=== PATIENT | female | born 1970 | race Caucasian/White ===

== ENCOUNTER 2018-03-24 21:50 | Emergency (ER) | payer BC, OTHER ==
--- NOTE | 2018-03-24 22:10 | Emergency Department Record ---
History of Present Illness - General Chief Complaint: Laceration(s) Stated Complaint: LT HAND PINKIE LAC Time Seen by Provider: 03/24/18 22:02 Source: Patient Mode of Arrival: Ambulatory Limitations: No limitations - History of Present Illness Initial Commments: 47 yo female presents to ED for evaluation following a crush injury to the the left little digit just prior to arrival. Patient reports that she was assisting with moving a cough when the digit became caught beneath the cough a wall. Patient reports bleeding and pain following injury, denies numbness/ tingling or weakness symptoms. Onset/Timin -: Minutes(s) Extremity Location: Left: Hand Place: Home Context: Accidental Associated Symptoms: None Treatments Prior to Arrival: Bandage - [place] Coma Scale Eye Response: (4) Open spontaneously Motor Response: (6) Obeys commands Verbal Response: (5) Oriented Diana Total: 15 - Related Data Patient Tetanus UTD (within 5 yrs): No Previous Rx's Medication Instructions Recorded Cephalexin [Keflex] 500 mg PO QID #39 cap 03/24/18 Allergies Allergy/AdvReac Type Severity Reaction Status Date / Time No Known Drug Allergies Allergy Verified 03/24/18 21:53 Travel Screening - Travel/Exposure Within Last 30 Days Have you traveled within the last 30 days?: No - Travel Symptoms Symptom Screening: None Review of Systems Constitutional: Denies: Chills, Fever, Malaise, Night sweats Eyes: Denies: Eye discharge, Eye pain ENT: Denies: Ear pain, Epistaxis Respiratory: Denies: Cough, Dyspnea Cardiovascular: Denies: Chest pain, Dyspnea on exertion Endocrine: Denies: Fatigue, Heat or cold intolerance Gastrointestinal: Denies: Abdominal pain, Nausea, Vomiting Genitourinary: Denies: Incontinence, Retention Musculoskeletal: Denies: Arthralgia, Back pain Skin: Reports: Other (Little finger laceration.). Denies: Bruising, Change in color Neurological: Denies: Abnormal gait, Confusion, Headache, Seizure Psychiatric: Denies: Anxiety Hematological/Lymphatic: Denies: Anemia, Blood Clots Past Medical History - SOCIAL HISTORY Smoking Status: Former smoker - RESPIRATORY Hx Respiratory Disorders: No - CARDIOVASCULAR Hx Cardio Disorders: No - NEURO Hx Neuro Disorders: No - GI Hx GI Disorders: No - Hx Genitourinary Disorders: No - ENDOCRINE Hx Endocrine Disorders: No - MUSCULOSKELETAL Hx Musculoskeletal Disorders: No - PSYCH Hx Psych Problems: No - HEMATOLOGY/ONCOLOGY Hx Hematology/Oncology Disorders: No Family Medical History Any Significant Family History?: Yes Hx Cancer: Father Physical Exam - General General Appearance: Alert, Oriented x3, Cooperative, Moderate distress Limitations: No limitations - Head Head exam: Atraumatic, Normocephalic, Normal inspection Head exam detail: negative: Abrasion, Contusion, Graham's sign, General tenderness, Hematoma - Eye Eye exam: Normal appearance. negative: Conjunctival injection, Periorbital swelling, Periorbital tenderness, Scleral icterus - ENT Ear exam: negative: Auricular hematoma, Auricular trauma Nasal Exam: negative: Active bleeding, Discharge, Dried blood, Foreign body Mouth exam: negative: Drooling, Laceration, Muffled voice, Tongue elevation - Neck Neck exam: Normal inspection. negative: Meningismus, Tenderness - Respiratory Respiratory exam: Normal lung sounds bilaterally. negative: Rales, Respiratory distress, Rhonchi, Stridor - Cardiovascular Cardiovascular Exam: Regular rate, Normal rhythm, Normal heart sounds - GI/Abdominal GI/Abdominal exam: Soft. negative: Rebound, Rigid, Tenderness - Rectal Rectal exam: Deferred - exam: Deferred - Extremities Extremities exam: Tenderness, Other (circumferential laceration of to the left little digit just proximal to the nailfold.). negative: Calf tenderness, Pedal edema - Back Back exam: Reports: Normal inspection. Denies: CVA tenderness (R), CVA tenderness (L) - Neurological Neurological exam: Alert, Normal gait, Oriented X3 - Psychiatric Psychiatric exam: Normal affect, Normal mood - Skin Skin exam: Normal color. negative: Abrasion Type of lesion: negative: abrasion Course Vital Signs 03/24/18 21:54 Temperature 98.3 F Pulse Rate 78 Respiratory 16 Rate Blood Pressure 145/77 Pulse Ox 97 - Reevaluation(s) Reevaluation #1: 03/24/18 22:08 Left little digit: Mildly displaced distal tuft fracture 2.5 cm laceration to the distal left little digit just proximal to the nail-fold , bleeding controlled. Wound was cleaned and prepped in sterile fashion, no residual FB identified on examination. Flexion/extension intact with isolation of the DIP. Wound was anesthetized with 1.5 mL of 0.25% Sensorcaine with good anesthesia, and the laceration was repaired with 4-0 Prolene (#7) sutures in interrupted fashion. Patient tolerated the procedure well without complications. Patient was started on Keflex, Tetanus updated prior to discharge. Case was discussed with Dr. Zuluaga, will see the patient in the office in 1-2 days as directed. Disposition Disposition: Discharge Clinical Impression: Open fracture of tuft of distal phalanx of finger Finger laceration Qualifiers: Encounter type: initial encounter Finger: little finger Damage to nail status: without damage Foreign body presence: without foreign body Laterality: left Qualified Code(s): S61.217A - Laceration without foreign body of left little finger without damage to nail, initial encounter Disposition: Home, Self-Care Condition: (2) Stable Instructions: Laceration (ED) Additional Instructions: Return to ED if your symptoms worsen or if you have any concerns. Keflex as directed. Follow-up with Dr. Zuluaga in 1-2 days as directed, call for appointment. Prescriptions: Cephalexin [Keflex] 500 mg PO QID #39 cap Referrals: KALA ZULUAGA M.D. [MEDICAL DOCTOR] - Forms: Patient Portal Access Time of Disposition: 22:46 Quality - Quality Measures Quality Measures: N/A - Blood Pressure Screening Does Patient Have Any of the Following: No Blood Pressure Classification: Hypertensive Reading Systolic Measurement: 145 Diastolic Measurement: 77 Screening for High Blood Pressure: < First Hypertensive BP, F/U Documented > [ [id number]] First Hypertensive Follow-up Interventions: Referral to alternative/primary care provider.
[2018-03-24] MEDS: CEPHALEXIN 500 MG CAPSULE PO STA (22:52)
[2018-03-24] MEDS: Diph,Pert(Acell),Tet Vac 0.5 ML SYR IM ONE (22:52)
--- NOTE | 2018-03-25 15:11 | RADIOLOGY REPORT ---
EXAM: LEFT FIFTH DIGIT HISTORY: INJURY. TECHNIQUE: Three views of the left fifth digit were obtained. Comparison: None. FINDINGS: Mild displaced fracture of the distal tuft. Associated soft tissue changes. IMPRESSION: MILDLY DISPLACED DISTAL TUFT FRACTURE. JOB NUMBER: [id number] MTDD
== END 2018-03-24 23:08 | disposition home or self-care (01) ==
LOC: ER 21:50
DX: S61.217A Laceration without foreign body of left little finger without damage to nail, initial encounter (principal); S62.637A Displaced fracture of distal phalanx of left little finger, initial encounter for closed fracture; W23.0XXA Caught, crushed, jammed, or pinched between moving objects, initial encounter; Y92.009 Unspecified place in unspecified non-institutional (private) residence as the place of occurrence of the external cause; Z87.891 Personal history of nicotine dependence
CPT/HCPCS: 12001; 73140; 90715; 96372; 99283; 99284